=== PATIENT | female | born 1965 | race Hispanic/Latino ===

== ENCOUNTER 2018-08-01 15:40 | Emergency (ER) | payer BC ==
--- NOTE | 2018-08-01 17:08 | RAD REPORT ---
EXAM DESCRIPTION: RAD - Lumbar Spine 3 Views - 08/01/2018 4:45 pm CLINICAL HISTORY: Back pain FINDINGS: The alignment of the lumbar spine is satisfactory. No fracture or dislocation is seen. Moderate disc space narrowing involves L5-S1.
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
== END 2018-08-01 17:23 | disposition home or self-care (01) ==
LOC: ER 15:40
DX: G54.1 Lumbosacral plexus disorders (principal); V49.9XXA Car occupant (driver) (passenger) injured in unspecified traffic accident, initial encounter
CPT/HCPCS: 72100; 72170; 99284